=== PATIENT | male | born 2005 | race Asian ===

== ENCOUNTER 2025-08-15 11:37 | Emergency (ER) | payer MEDICAID ==
[~2025-08-15] VITALS: Ht 167.6 cm; Wt 70.5 kg
[2025-08-15 12:44] LABS: COVID AG,FIA SOURCE NASAL SWAB
[2025-08-15 12:54] VITALS: BP 141/85; PULSE 87; RESP 17; TEMP 98.9; O2SAT 97
[2025-08-15 13:01] LABS: RAPID GROUP A STREP PRELIM. NEGATIVE (NEGATIVE)
[2025-08-15 13:12] LABS: SARS-COV2 (COVID) ANTIGEN,FIA Negative (Negative)
[2025-08-15 13:15] LABS: INFLUENZA TYPE B NEGATIVE FOR TYPE B (NEGATIVE)
[2025-08-15 13:31] LABS: INFLUENZA TYPE A POSITIVE FOR TYPE A (NEGATIVE)
[2025-08-15] MEDS ORDERED: AMOX875T2 PO (14:26)
== END 2025-08-15 14:43 | disposition home or self-care (01) ==
LOC: EMS 11:37
DX: J11.08 Influenza due to unidentified influenza virus with specified pneumonia (principal); F12.90 Cannabis use, unspecified, uncomplicated; Z20.822 Contact with and (suspected) exposure to COVID-19
CPT/HCPCS: 71045; 87081; 87430; 87804; 99284